=== PATIENT | male | born 2000 | race Two or more races ===

== ENCOUNTER 2021-03-29 12:49 | Emergency (ER) | payer BC ==
[~2021-03-29] VITALS: Ht 167.6 cm; Wt 50.8 kg
--- NOTE | 2021-03-29 12:53 | NUR ---
TO ER BED 1, BIBRA 87 FROM HOME C/O ANXIETY AND PANIC ATTACK, HYPERVENTILATING 30BPM, AAOX4
[2021-03-29] MEDS ORDERED: LORAZEPAM INJ 2 MG/ML VIAL ONE (12:59)
[2021-03-29] MEDS ORDERED: LORAZEPAM INJ 2 MG/ML VIAL IM ONE (13:00)
[2021-03-29] MEDS ORDERED: LORA-259 PO (13:49)
[2021-03-29 13:54] VITALS: BP 132/60
== END 2021-03-29 13:55 | disposition home or self-care (01) ==
LOC: ER 12:54
DX: F41.9 Anxiety disorder, unspecified (principal); Z79.899 Other long term (current) drug therapy
CPT/HCPCS: 96372; 99283; J2060